=== PATIENT | female | born 1995 | race Caucasian/White ===

== ENCOUNTER 2018-01-28 17:43 | Inpatient (IN) | payer OTHER ==
[2018-01-28] MEDS ORDERED: BUTORPHANOL 2 MG INJ IV (20:30)
[2018-01-28] MEDS ORDERED: OXYTOCIN 30 UNITS/LR 500 ML IV (20:30)
[2018-01-28] MEDS ORDERED: IBUPROFEN 600 MG TAB PO (20:30)
[2018-01-28] MEDS ORDERED: METHYLERGONOVINE 0.2 MG INJ IM (20:30)
[2018-01-28] MEDS ORDERED: LIDOCAINE 1% (MPF) 30 ML INJ INJ (20:30)
[2018-01-28] MEDS ORDERED: MISOPROSTOL 200 MCG TAB PR (20:30)
[2018-01-28] MEDS: LACTATED RINGER'S 1,000 ML IV* ×2 (20:59→23:18)
[2018-01-28 21:00] LABS: ADD MAN DIFF? NO
[2018-01-28] MEDS: OXYTOCIN 30 UNITS/LR 500 ML IV (21:01)
[2018-01-28 21:03] LABS: WHITE BLOOD COUNT 8.5 10^3/ul (4.8-10.8)
[2018-01-28 21:03] LABS: BASOPHILS % 0.1 % (0.0-2.0); EOSINOPHILS % 0.2 % (0.0-7.0); HEMATOCRIT 33.1 % (37.0-47.0); HEMOGLOBIN 11.3 g/dl (12.0-16.0); LYMPHOCYTES # 1.3 10^3/ul (0.8-2.9); LYMPHOCYTES % 15.8 % (15.0-51.0); MEAN CORPUSCULAR HEMOGLOBIN 31.7 pg (29.0-33.0); MEAN CORPUSCULAR HGB CONC 34.1 g/dl (32.0-37.0); MEAN PLATELET VOLUME 10.1 fl (7.4-10.4); MONOCYTE # 0.5 10^3/ul (0.3-0.9); NEUTROPHIL # 6.6 10^3/ul (1.6-7.5); NEUTROPHILS % 77.2 % (39.0-77.0); PLATELET COUNT 218 10^3/UL (140-415); RED BLOOD COUNT 3.56 10^6/ul (4.20-5.40); RED CELL DISTRIBUTION WIDTH 13.2 % (11.5-14.5)
[2018-01-28 21:22] LABS: INR 0.98; PROTIME 13.1 Sec (11.9-14.9)
[2018-01-28 21:23] LABS: PARTIAL THROMBOPLASTIN TIME 31.2 Sec (25.0-35.0)
[2018-01-28 21:53] LABS: HEPATITIS B SURFACE ANTIGEN NEGATIVE (NEGATIVE)
[2018-01-29] MEDS: LACTATED RINGER'S 1,000 ML IV* ×3 (06:55→16:06)
[2018-01-29] MEDS ORDERED: FENTAnyl 2MCG/ML-ROPIV 0.2% 100 ML (07:28)
[2018-01-29] MEDS ORDERED: DIPHENHYDRAMINE 50 MG INJ IV (08:30)
[2018-01-29] MEDS ORDERED: NALOXONE (0.4 MG/ML) INJ IV (08:30)
[2018-01-29] MEDS ORDERED: ONDANSETRON 4 MG INJ IV (08:30)
[2018-01-29] MEDS: FENTAnyl 2MCG/ML-ROPIV 0.2% 100 ML BAG EPI ×2 (09:07→16:15)
[2018-01-29] MEDS: DINOPROSTONE 10 MG VAG SUPP VAG (11:27)
[2018-01-29 17:07] LABS: RAPID PLASMA REAGIN NONREACTIVE (NR)
[2018-01-30] MEDS: LACTATED RINGER'S 1,000 ML IV* ×3 (00:43→23:26)
[2018-01-30] MEDS: FENTAnyl 2MCG/ML-ROPIV 0.2% 100 ML BAG EPI ×2 (00:44→08:07)
[2018-01-30] MEDS: OXYTOCIN 30 UNITS/LR 500 ML IV ×2 (12:25→12:35)
[2018-01-30] MEDS: MINERAL OIL LIGHT 10 ML VIAL TOP (12:36)
[2018-01-30] MEDS: CARBOPROST 250 MCG INJ IM (12:36)
[2018-01-30] MEDS ORDERED: ZOLPIDEM 5 MG TAB PO (15:30)
[2018-01-30] MEDS ORDERED: OXYTOCIN 30 UNITS/LR 500 ML IV ×2 (15:30)
[2018-01-30] MEDS ORDERED: METHYLERGONOVINE 0.2 MG INJ IM (15:30)
[2018-01-30] MEDS ORDERED: CARBOPROST 250 MCG INJ IM ×2 (15:30)
[2018-01-30] MEDS ORDERED: DIBUCAINE 1% 30 GM OINT PR (15:30)
[2018-01-30] MEDS ORDERED: MINERAL OIL LIGHT 10 ML VIAL TOP (15:30)
[2018-01-30] MEDS ORDERED: MISOPROSTOL 200 MCG TAB PR ×2 (15:30)
[2018-01-30] MEDS ORDERED: HYDROCODONE/APAP (5/325) TAB PO ×2 (15:30)
[2018-01-30] MEDS: CEPHALEXIN 500 MG CAP PO ×2 (17:32→23:54)
[2018-01-30] MEDS: IBUPROFEN 600 MG TAB PO ×2 (17:32→23:54)
[2018-01-30] MEDS: WITCH HAZEL/GLYCERIN PAD PR (17:32)
[2018-01-30] MEDS: LANOLIN 7 GM TUBE TOP (17:32)
[2018-01-30] MEDS: BENZOCAINE 20% 56 ML SPRAY TOP (17:32)
[2018-01-30] MEDS: SENNA/DOCUSATE NA (8.6MG/50MG) TAB PO (21:00)
[2018-01-30] MEDS: MAGNESIUM HYDROXIDE 30ML CUP PO (21:00)
[2018-01-31] MEDS: CEPHALEXIN 500 MG CAP PO ×4 (05:45→23:34)
[2018-01-31] MEDS: IBUPROFEN 600 MG TAB PO ×4 (05:45→23:34)
[2018-01-31] MEDS: LACTATED RINGER'S 1,000 ML IV* ×3 (07:26→23:26)
[2018-01-31] MEDS: MAGNESIUM HYDROXIDE 30ML CUP PO ×2 (09:00→20:45)
[2018-01-31] MEDS: SENNA/DOCUSATE NA (8.6MG/50MG) TAB PO ×2 (09:00→20:45)
[2018-01-31] MEDS: FERROUS SULFATE (EC) 325 MG TAB PO (09:03)
[2018-01-31 09:11] LABS: ADD MAN DIFF? NO
[2018-01-31 09:18] LABS: WHITE BLOOD COUNT 10.7 10^3/ul (4.8-10.8)
[2018-01-31 09:18] LABS: BASOPHILS % 0.2 % (0.0-2.0); EOSINOPHILS # 0.1 10^3/ul (0.0-0.5); EOSINOPHILS % 0.7 % (0.0-7.0); HEMATOCRIT 23.1 % (37.0-47.0); HEMOGLOBIN 7.8 g/dl (12.0-16.0); LYMPHOCYTES # 1.3 10^3/ul (0.8-2.9); LYMPHOCYTES % 11.7 % (15.0-51.0); MEAN CORPUSCULAR HEMOGLOBIN 31.2 pg (29.0-33.0); MEAN CORPUSCULAR HGB CONC 33.8 g/dl (32.0-37.0); MEAN CORPUSCULAR VOLUME 92.4 fl (82.0-101.0); MEAN PLATELET VOLUME 10.2 fl (7.4-10.4); MONOCYTES % 9.7 % (0.0-11.0); NEUTROPHIL # 8.3 10^3/ul (1.6-7.5); NEUTROPHILS % 77.2 % (39.0-77.0); PLATELET COUNT 177 10^3/UL (140-415); RED CELL DISTRIBUTION WIDTH 13.3 % (11.5-14.5)
[2018-02-01] MEDS: CEPHALEXIN 500 MG CAP PO ×2 (05:33→12:04)
[2018-02-01] MEDS: IBUPROFEN 600 MG TAB PO ×2 (05:33→12:04)
[2018-02-01] MEDS: LACTATED RINGER'S 1,000 ML IV* (07:26)
[2018-02-01] MEDS: VARICELLA VACCINE LIVE/PF 1,350 UNIT/0.5 ML ML SC* (07:54)
[2018-02-01] MEDS: DIPHTH/TET/ACEL PERTUSS (ADULT) 0.5 ML VIAL IM* (08:49)
[2018-02-01] MEDS: FERROUS SULFATE (EC) 325 MG TAB PO (08:50)
[2018-02-01] MEDS: MAGNESIUM HYDROXIDE 30ML CUP PO (08:50)
[2018-02-01] MEDS: SENNA/DOCUSATE NA (8.6MG/50MG) TAB PO (08:50)
[2018-02-01] MEDS: MEASLES,MUMPS,RUBELLA VACCINE INJ SC* (11:11)
== END 2018-02-01 12:35 | disposition home or self-care (01) | DRG 774 ==
LOC: OBT 17:43 → PP1 01-30 13:55 → L-D 17:45 → OBT 19:00 → L-D 19:00
PROVIDERS: Obstetrics & Gynecology
PROC: 10E0XZZ Delivery of Products of Conception, External Approach (ICD-10-PCS; principal; 2018-01-29)
PROC: 0HQ9XZZ Repair Perineum Skin, External Approach (ICD-10-PCS; 2018-01-29)
PROC: 3E0P7VZ Introduction of Hormone into Female Reproductive, Via Natural or Artificial Opening (ICD-10-PCS; 2018-01-29)
DX: O48.0 Post-term pregnancy (principal); O72.1 Other immediate postpartum hemorrhage; O69.81X0 Labor and delivery complicated by cord around neck, without compression, not applicable or unspecified; O70.0 First degree perineal laceration during delivery; Z37.0 Single live birth; Z3A.40 40 weeks gestation of pregnancy
CPT/HCPCS: 62319; 76815; 76818; 85025; 85610; 85730; 86592; 86850; 86900; 86901; 87340